=== PATIENT | female | born 1990 | race Caucasian/White ===

== ENCOUNTER → 2022-02-01 | Outpatient (CLI) | payer OTHER | LOC: MHCPAIN 14:43 | DX: M53.3 Sacrococcygeal disorders, not elsewhere classified (principal); M51.36 Other intervertebral disc degeneration, lumbar region | CPT/HCPCS: G0463 ==

== ENCOUNTER 2022-03-06 15:45 | Outpatient (RCR) | payer OTHER | END 2022-03-20 | disposition home or self-care (01) | LOC: WSPT | DX: M99.04 Segmental and somatic dysfunction of sacral region (principal); G89.29 Other chronic pain ==

== ENCOUNTER 2022-08-17 10:30 | Outpatient (RCR) | payer OTHER | END 2022-08-18 | disposition home or self-care (01) | LOC: WSPT | DX: M25.562 Pain in left knee (principal) ==

== ENCOUNTER 2022-09-14 11:15 | Outpatient (RCR) | payer OTHER | END 2022-09-17 | disposition home or self-care (01) | LOC: WSPT | DX: M25.562 Pain in left knee (principal) ==